=== PATIENT | male | born 1995 | race Caucasian/White ===

== ENCOUNTER 2022-08-31 16:37 | Emergency (ER) | payer OTHER, SELFPAY ==
[2022-08-31 16:49] VITALS: BP 128/90; PULSE 83; RESP 16; TEMP 37.1; O2SAT 100
--- NOTE | 2022-08-31 17:06 | ED.URI ---
HPI - URI/Sore Throat General Chief Complaint: Upper Respiratory Infection Stated Complaint: cough, nasal congestion Time Seen by Provider: 08/31/22 17:00 Source: patient Mode of arrival: ambulatory Limitations: no limitations History of Present Illness HPI Narrative: Candice is a 27-year-old female patient presenting to clinic today with complaints of cough and nasal congestion x4 days. She denies any known fever or chills. States that she has had a barky cough. She denies any shortness of breath or chest pain. Has been having coughing fits and periods of shortness of breath. MD elicited complaint: sore throat and nasal congestion Review of Systems Review of Systems: Pertinent positives per HPI. Patient denies any fever, chills, rash, headache, visual changes, dizziness, shortness of breath, chest pain, palpitations, nausea, vomiting, diarrhea, constipation, abdominal pain, or any urinary issues. PMFSH Comments At the time of my signature, I reviewed and agree with the nursing past medical, surgical, social, and family history. There is no relevant family history pertinent to the patient complaint. Exam Narrative: General: Well-developed, well nourished, in no apparent distress Head: Normocephalic, atraumatic Eyes: Pupils equally round and reactive to light bilaterally, EOM intact, sclera and conjunctive clear, no discharge, lids normal Ears: TMs intact and clear, ear canals clear, no drainage, grossly hearing normal. Nose: Nares patent, clear nasal discharge, mild inflammation, no sinus tenderness. Mouth: Oral pharynx without lesions or masses, good dentition, MMM. Neck: Supple, trachea midline, no enlargement of anterior or posterior cervical nodes, no thyroid masses or goiter palpable. Cardio: Regular rate and rhythm, s1 and s2 normal, no murmur appreciated. Resp: Faint wheezing in the lower lung knowles, no rhonchi, rales, wheezing or rubs Course Course Emergency Course: Portions of this record may have been created with voice recognition software. Level of Care: Express Care Visit Vital Signs Vital signs: Vital Signs Temperature 37.1 C 08/31/22 16:49 Pulse Rate 83 08/31/22 16:49 Respiratory Rate 16 08/31/22 16:49 Blood Pressure 128/90 08/31/22 16:49 Pulse Oximetry 100 08/31/22 16:49 Oxygen Delivery Room Air 08/31/22 16:49 Temperature 37.1 C 08/31/22 16:49 Pulse Rate 83 08/31/22 16:49 Respiratory Rate 16 08/31/22 16:49 Blood Pressure 128/90 08/31/22 16:49 Pulse Oximetry 100 08/31/22 16:49 Oxygen Delivery Room Air 08/31/22 16:49 Vital signs reviewed MDM - URI/Sore Throat MDM Narrative Medical decision making narrative: At the time of visit patient is resting comfortably on the exam table. I suspect the patient has bronchitis. Prescription for albuterol inhaler and prednisone was sent to the pharmacy and supportive measures were discussed with the patient she voiced understanding discharge instructions agrees to treatment plan. Differential Diagnosis Differential diagnosis: Likely upper respiratory infection, otitis media, sinusitis, viral infection, bronchitis, influenza, pharyngitis and other (COVID) Discharge Plan Discharge Clinical Impression: Bronchitis Patient Disposition: Home, Self-Care Condition: Stable Instructions: Antibiotic Form, Acute Bronchitis (ED) Additional Instructions: Take prescription medications only as prescribed-prednisone and albuterol inhaler Increase fluids and stay well hydrated Tylenol/motrin for pain/fever Flonase and OTC antihistamines as directed Vicks vapor rub to open sinuses Sinus rinses for congestion Cepacol spray, cough drops, throat lozenges, warm tea with honey/lemon, gargle salt water to soothe throat BRAT diet for diarrhea Clear liquids x 24 hours then advance as tolerated for nausea/vomiting Go to the ED if you develop a worsening in your condition- high fever not controlled by Tylenol
== END 2022-08-31 17:11 | disposition home or self-care (01) ==
PROVIDERS: Emergency Provider Nurse Practitioner Family; PCP Family Medicine
DX: J40 Bronchitis, not specified as acute or chronic (principal)
CPT/HCPCS: 99213; G0463

== ENCOUNTER 2024-04-10 17:12 | Emergency (ER) | payer OTHER, SELFPAY ==
[2024-04-10 17:28] VITALS: BP 118/70; PULSE 78; RESP 18; TEMP 36.5; O2SAT 100
--- NOTE | 2024-04-10 17:48 | ED.WOUNDLAC ---
HPI - Wound/Laceration General Chief Complaint: Wound/Laceration Stated Complaint: RT Thumb Cut Time Seen by Provider: 04/10/24 17:48 Source: patient, RN notes reviewed and old records reviewed Mode of arrival: ambulatory Limitations: no limitations History of Present Illness HPI narrative: patient presents with complaints of abrasions to the right thumb. Reports she sustained this this afternoon on a [place] fence. There is no active bleeding. She reports that she is concerned about her tetanus shot being out of date. Requesting tetanus shot. No other injury or trauma. No other complaints Related Data Home Medications Medication Instructions Recorded Confirmed norethindrone (contraceptive) 0.35 0.35 mg PO DAILY 04/10/24 04/10/24 mg tablet ([place]) Allergies Allergy/AdvReac Type Severity Reaction Status Date / Time No Known Allergies Allergy Verified 04/10/24 17:25 Review of Systems Review of Systems: All systems reviewed & are unremarkable except as noted in HPI and below Constitutional: Constitutional: Reports no additional constitutional complaints ENT: Reports system reviewed and no additional complaints, except as documented Cardiovascular: Cardiovascular: Reports no additional cardiovascular complaints Respiratory: Respiratory: Reports no additional respiratory complaints Gastrointestinal: Gastrointestinal: Reports no additional gastrointestinal complaints Exam Const: General: cooperative, no acute distress, alert and awake Orientation/consciousness: oriented to person, oriented to place and oriented to time HENMT: Head: normal to inspection Resp: Effort & Inspection: normal respiratory effort and able to speak in complete sentences Auscultation: clear to auscultation bilaterally, no crackles, no rales, no rhonchi and no wheezes Cardio: Palpation: normal PMI Rate: regular rate Rhythm: regular rhythm Heart sounds: S1 normal heart sound present and S2 normal heart sound present Neuro: General: oriented to person, oriented to place and oriented to time Cranial nerves: Yes CN's II-XII intact bilaterally Extrem: Right upper extremity: full ROM, normal capillary refill and Extremity exam: right hand (Small [place], not full thickness, approximately 1 mm to right thumb) Psych: Appearance: grossly normal Thought process: Normal thought process present Insight: Good insight present (Psych) Judgement: Good judgement present (Psych) Course Course Level of Care: Express Care Visit Vital Signs Vital signs: Vital Signs Temperature 97.7 F 04/10/24 17:28 Pulse Rate 78 09/16/24 17:28 Respiratory Rate 18 04/10/24 17:28 Blood Pressure 118/70 04/10/24 17:28 Pulse Oximetry 100 04/10/24 17:28 Oxygen Delivery Room Air 04/10/24 17:28 Temperature 97.7 F 04/10/24 17:28 Pulse Rate 78 04/10/24 17:28 Respiratory Rate 18 04/10/24 17:28 Blood Pressure 118/70 04/10/24 17:28 Pulse Oximetry 100 04/10/24 17:28 Oxygen Delivery Room Air 04/10/24 17:28 MDM - Wound/Laceration MDM Narrative Medical decision making narrative: neck to right thumb, no active bleeding, not full thickness. Requesting updated tetanus, this was done. Discharge home Discharge instructions reviewed with patient, as well as provided in writing per nursing staff. The instructions also include specific and strict return/GO TO THE ER as well as f/u information. All questions have been answered, and the patient deny any further questions with discharge and discharge plan. Some parts of this dictation were generated by voice recognition software and may contain typographical and/or grammatical inaccuracies. Differential Diagnosis Differential diagnosis: Likely laceration, abrasion and avulsion of skin Medical Records Attestation: I reviewed the patient's medical records. Discharge Plan Discharge Clinical Impression: Abrasion Patient Disposition: Home, Self-Care Condition: Stable
[2024-04-10] MEDS: TETANUS,DIPHTHERIA,AC PERTUSSIS ADULT (0.5 ML) BOOSTRIX IM (17:59)
== END 2024-04-10 18:03 | disposition home or self-care (01) ==
PROVIDERS: Emergency Provider Nurse Practitioner Family
DX: S60.311A Abrasion of right thumb, initial encounter (principal); W22.8XXA Striking against or struck by other objects, initial encounter; Z23 Encounter for immunization
CPT/HCPCS: 90471; 90715; 99212; G0463